=== PATIENT | female | born 1975 | race Hispanic/Latino ===

== ENCOUNTER → 2022-08-14 | Day surgery (SDC) | payer OTHER ==
[~2022-08-14] MED LIST: ALBUTEROL SULFATE HFA 8GM INHALATION AEROSOL INH ONE; HUMALOG SQ; LEVEMIR FL100 UNIT/1 SC; LIDOCAINE HCL 2% LOCAL INJ 5 ML SDV VIAL INJ ONE; PROPOFOL IV EMULSION 10 MG/ML 20 ML VIAL ONE
[2022-08-14 08:15] VITALS: BP 142/80
== END | disposition home or self-care (01) ==
LOC: ENDO 05:37
PROVIDERS: ATTEND Internal Medicine Gastroenterology
DX: K22.2 Esophageal obstruction (principal); K29.50 Unspecified chronic gastritis without bleeding; K31.A12 Gastric intestinal metaplasia without dysplasia, involving the body (corpus); K20.90 Esophagitis, unspecified without bleeding; E11.9 Type 2 diabetes mellitus without complications; J45.909 Unspecified asthma, uncomplicated; Z79.4 Long term (current) use of insulin
CPT/HCPCS: 36415; 43239; 43450; 81025; 82948; 88304; 88305; 88312; 88342; J2001

== ENCOUNTER → 2025-02-17 | Day surgery (SDC) | payer BC ==
[~2025-02-17] MED LIST changes: -ALBUTEROL SULFATE HFA 8GM INHALATION AEROSOL INH ONE; +FENTANYL CITRATE/PF 100MCG/2 ML INJ ONE; +HYOSCYAMINE SULFATE 0.5 MG/ML INJ ONE; -LIDOCAINE HCL 2% LOCAL INJ 5 ML SDV VIAL INJ ONE; +METOCLOPRAMIDE HCL 10 MG/2ML VIAL ONE; +PRENATAL 19 TA1 EAC2 PO; +PROPOFOL IV EMULSION 50 ML IV ONE; +VALTREX500 MG PO
[2025-02-17] MEDS: LACTATED RINGER'S 1,000 ML ONE (09:45)
[2025-02-17] MEDS: INSULIN REGULAR, HUMAN 100 UNIT/1 ML ONE (10:18)
[2025-02-17 12:04] VITALS: TEMP 97.9
[2025-02-17 12:30] VITALS: BP 135/67; PULSE 85; RESP 16; O2SAT 100
== END | disposition home or self-care (01) ==
LOC: OR 09:31
PROVIDERS: ATTEND Internal Medicine Gastroenterology
DX: Z12.11 Encounter for screening for malignant neoplasm of colon (principal); D12.0 Benign neoplasm of cecum; K29.50 Unspecified chronic gastritis without bleeding; K22.2 Esophageal obstruction; K31.A12 Gastric intestinal metaplasia without dysplasia, involving the body (corpus); K20.90 Esophagitis, unspecified without bleeding; K21.9 Gastro-esophageal reflux disease without esophagitis; Z71.3 Dietary counseling and surveillance; D64.9 Anemia, unspecified; E11.9 Type 2 diabetes mellitus without complications; J45.909 Unspecified asthma, uncomplicated; Z71.89 Other specified counseling; Z01.810 Encounter for preprocedural cardiovascular examination; Z79.4 Long term (current) use of insulin; Z79.899 Other long term (current) drug therapy
CPT/HCPCS: 36415; 43239; 43450; 45385; 81025; 82948; 93005; J1980; J2470; J2704 ×2; J2765; J3010; J7121; 45378